=== PATIENT | male | born 1965 | race Caucasian/White ===

== ENCOUNTER 2020-02-01 12:19 | Inpatient (IN) | payer BC, OTHER ==
[~2020-02-01] VITALS: Ht 188 cm; Wt 115.0 kg
[2020-02-01] MEDS ORDERED: MORPHINE SULFATE 4 MG/ML, 1ML ONE ×2 (12:48→17:25)
[2020-02-01] MEDS ORDERED: ASPIRIN 81 MG TABLET CHEW ONE ×3 (12:48→14:29)
[2020-02-01 12:55] LABS: BASOPHILS % (AUTO) 1 % (0-1); EOSINOPHILS % (AUTO) 3 % (1-7); LYMPHOCYTES % (AUTO) 12 % (22-44); MEAN CORPUSCULAR HEMOGLOBIN 32.6 pg (27.5-34.5); MEAN CORPUSCULAR HGB CONC 34.3 g/dL (33.2-36.2); MEAN PLATELET VOLUME 7.4 fL (7.4-10.4); MONOCYTES % (AUTO) 11 % (2-9); NEUTROPHILS % (AUTO) 74 % (42-75); PLATELET COUNT 265 x10^3/uL (130-400); RED BLOOD COUNT 4.77 x10^6/uL (4.38-5.82); RED CELL DISTRIBUTION WIDTH 13.4 % (9.4-14.8)
--- NOTE | 2020-02-01 12:57 | NUR ---
MARGOTH FROM HOME FOR INCREASING STABBING CP. PT HX AAA SINCE 2008. EMS GAVE 4MG IV SOFRAN AND 100MCG FENTANYL. PT TOOK 324MG ASA AT HOME. PT IN BED IN GOWN WITH [facility] [employer], SPO2, BP Q 30 MIN, SIDE AILS UP X2, CALL LIGHT IN REACH. GF AT BEDSIDE. WENT OVER PLAN OF CARE FROM ORDER LIST, AGREES TO PLAN. PT REPORTS PAIN 9/10 WITH A DEEP BREATH.
[2020-02-01] MEDS ORDERED: SODIUM CHLORIDE 0.9% 1,000ML IVBOLUS ONE (13:00)
[2020-02-01] MEDS ORDERED: ASPIRIN 81 MG TABLET CHEW PO ONE (13:00)
[2020-02-01] MEDS ORDERED: MORPHINE SULFATE 4 MG/ML, 1ML IVPush PRN (13:00)
[2020-02-01] MEDS ORDERED: SODIUM CHLORIDE FLUSH 10ML SYR IVF ONE (13:00)
[2020-02-01 13:05] LABS: ALANINE AMINOTRANSFERASE 79 U/L (12-78); ALBUMIN 3.7 g/dL (3.4-5.0); ANION GAP 3 mmol/L (5-15); CALCIUM 8.6 mg/dL (8.5-10.1); CHLORIDE 111 mmol/L (98-107); CREATININE 0.96 mg/dL (0.7-1.3)
[2020-02-01 13:09] LABS: ALKALINE PHOSPHATASE 83 U/L (45-117); BILIRUBIN,TOTAL 0.9 mg/dL (0.2-1.0); TOTAL PROTEIN 7.4 g/dL (6.4-8.2); TROPONIN I < 0.015 ng/mL (0.000-0.045)
[2020-02-01 13:35] LABS: MD SCAN
[2020-02-01] MEDS ORDERED: OMNIPAQUE 350 MG/ML, 100ML BOTTLE ONE (13:35)
[2020-02-01] MEDS ORDERED: CEFTRIAXONE PMX 1GM/50ML 50 ML IV ONE (14:00)
[2020-02-01] MEDS ORDERED: AZITHROMYCIN 500 MG in SODIUM CHLORIDE 0.9% 250 ML IV ONE (14:00)
[2020-02-01] MEDS ORDERED: CEFTRIAXONE PMX 1GM/50ML 50 ML ONE (14:20)
--- NOTE | 2020-02-01 14:58 | NUR ---
PT REQUESTING FOOD, MD DURAND GAVE VERBAL ORDER FOR A DIET. PT FAMILY IS GETTING FOOD FOR PT. PT CALM IN ROOM.
[2020-02-01] MEDS ORDERED: SODIUM CHLORIDE FLUSH 10ML SYR IVF PRN (15:30)
[2020-02-01] MEDS ORDERED: DEXAMETHASONE 4 MG TABLET PO ONE (16:30)
[2020-02-01] MEDS ORDERED: POLYETHYLENE GLYCOL 17 GM PACKET PO PRN (16:30)
[2020-02-01] MEDS ORDERED: IBUPROFEN 600 MG TABLET PO PRN (16:30)
[2020-02-01] MEDS ORDERED: ACETAMINOPHEN 325 MG TABLET PO PRN (16:30)
[2020-02-01] MEDS ORDERED: DOCUSATE 100 MG CAPSULE PO PRN (16:30)
[2020-02-01] MEDS ORDERED: PHARMACY MAY ADJ FOR RENAL FX MC PRN (16:30)
[2020-02-01] MEDS ORDERED: ONDANSETRON 2MG/ML, 2ML IVPush PRN (16:30)
[2020-02-01] MEDS ORDERED: ONDANSETRON ODT 4 MG PO PRN (16:30)
[2020-02-01] MEDS ORDERED: morphine SULFATE 10 MG/ML, 1ML IVPush PRN (16:30)
[2020-02-01] MEDS ORDERED: HYDROcodone/APAP 5/325 TABLET PO PRN (16:30)
[2020-02-01] MEDS ORDERED: hydrALAzine 20 MG/ML, 1ML IVPush PRN (16:30)
[2020-02-01] MEDS ORDERED: BISACODYL 10 MG SUPP PR PRN (16:30)
[2020-02-01] MEDS ORDERED: CEFTRIAXONE PMX 1GM/50ML 50 ML IVPB SCH (16:30)
[2020-02-01] MEDS ORDERED: ENALAPRILAT 1.25 MG/ML, 2ML IVPush PRN (16:30)
[2020-02-01] MEDS ORDERED: AZITHROMYCIN 500 MG TABLET PO ONE (16:30)
[2020-02-01 16:56] LABS: TROPONIN I < 0.015 ng/mL (0.000-0.045)
[2020-02-01] MEDS ORDERED: NITROGLYCERIN SINGLE TAB 0.4 MG SL PRN (17:00)
[2020-02-01] MEDS ORDERED: ENOXAPARIN 60 MG/0.6 ML ONE (17:25)
[2020-02-01] MEDS ORDERED: DEXAMETHASONE 4 MG/ML, 5ML ONE (17:25)
[2020-02-01] MEDS: ENOXAPARIN 40 MG/0.4 ML SQ SCH (17:32)
[2020-02-01] MEDS: SODIUM CHLORIDE 0.9% 1,000 ML IV SCH (17:32)
[2020-02-01 17:45] VITALS: BP 117/76
[2020-02-01 20:00] VITALS: BP 107/69
[2020-02-01] MEDS ORDERED: MELATONIN 5 MG TABLET PO SCH (21:00)
[2020-02-01] MEDS: ASCORBIC ACID 500 MG TABLET PO SCH (21:06)
[2020-02-01 22:48] LABS: TROPONIN I < 0.015 ng/mL (0.000-0.045)
[2020-02-02] MEDS: SODIUM CHLORIDE 0.9% 1,000 ML IV SCH ×3 (00:38→16:12)
[2020-02-02 01:01] VITALS: BP 92/51
[2020-02-02] MEDS ORDERED: ASPIRIN 325 MG TABLET EC PO SCH (06:00)
[2020-02-02 06:13] LABS: BASOPHILS % (AUTO) 0 % (0-1); EOSINOPHILS % (AUTO) 0 % (1-7); LYMPHOCYTES % (AUTO) 7 % (22-44); MEAN CORPUSCULAR HEMOGLOBIN 32.2 pg (27.5-34.5); MEAN CORPUSCULAR HGB CONC 33.3 g/dL (33.2-36.2); MEAN PLATELET VOLUME 7.7 fL (7.4-10.4); MONOCYTES % (AUTO) 6 % (2-9); NEUTROPHILS % (AUTO) 87 % (42-75); PLATELET COUNT 282 x10^3/uL (130-400); RED BLOOD COUNT 4.59 x10^6/uL (4.38-5.82); RED CELL DISTRIBUTION WIDTH 13.4 % (9.4-14.8)
[2020-02-02 06:15] LABS: MD NO
[2020-02-02 06:25] LABS: ALBUMIN 3.3 g/dL (3.4-5.0); CALCIUM 9.1 mg/dL (8.5-10.1); CHLORIDE 113 mmol/L (98-107)
[2020-02-02 06:34] LABS: ALANINE AMINOTRANSFERASE 68 U/L (12-78); ALKALINE PHOSPHATASE 78 U/L (45-117); ANION GAP 5 mmol/L (5-15); BILIRUBIN,TOTAL 0.9 mg/dL (0.2-1.0); CREATININE 1.17 mg/dL (0.7-1.3); TOTAL PROTEIN 7.4 g/dL (6.4-8.2)
[2020-02-02 08:10] VITALS: BP 122/76
[2020-02-02] MEDS ORDERED: CEFTRIAXONE PMX 2GM/50ML 50 ML IVPB SCH (08:30)
[2020-02-02] MEDS ORDERED: AZITHROMYCIN 500 MG TABLET PO ONE (09:00)
[2020-02-02] MEDS ORDERED: THIAMINE 100MG TABLET PO ONE (09:00)
[2020-02-02] MEDS ORDERED: DEXAMETHASONE 4 MG TABLET PO ONE (09:00)
[2020-02-02] MEDS ORDERED: ZINC SULFATE 220 MG CAPSULE PO SCH (09:00)
[2020-02-02] MEDS ORDERED: CHOLECALCIFEROL 1,000 UNIT TABLET PO SCH (09:00)
[2020-02-02] MEDS: ASCORBIC ACID 500 MG TABLET PO SCH ×2 (09:14→16:12)
[2020-02-02] MEDS: ALBUTEROL HFA 90 MCG/SPRAY INH SCH ×2 (13:19→16:12)
[2020-02-02 13:22] VITALS: BP 119/70
[2020-02-02] MEDS ORDERED: ENOXAPARIN 60 MG/0.6 ML ONE (16:09)
[2020-02-02] MEDS: ENOXAPARIN 40 MG/0.4 ML SQ SCH (16:13)
[2020-02-02] MEDS ORDERED: GUAIFENESIN ER 600 MG TABLET PO SCH (21:00)
== END 2020-02-02 16:32 | disposition left against medical advice (07) | DRG 871 ==
LOC: ED 12:43 → EDIP 15:20 → 4EST 17:38
PROVIDERS: ADMIT Student in an Organized Health Care Education/Training Program; ATTEND Internal Medicine
DX: A41.9 Sepsis, unspecified organism (principal); J15.9 Unspecified bacterial pneumonia; J96.01 Acute respiratory failure with hypoxia; I20.0 Unstable angina; F17.200 Nicotine dependence, unspecified, uncomplicated; I71.9 Aortic aneurysm of unspecified site, without rupture; Z20.828 Contact with and (suspected) exposure to other viral communicable diseases; I25.2 Old myocardial infarction
CPT/HCPCS: 36415; 71045; 71275; 80053; 82728; 83605; 83615; 83735; 83880; 84145; 84484; 85025; 86140; 87040; 93005; 93306; G0378; J0456; J0696; J1650; Q9967; J7030; J7050; U0003